=== PATIENT | male | born 1975 | race Asian ===

== ENCOUNTER → 2017-01-16 | Outpatient (CLI) | payer OTHER ==
--- NOTE | 2017-01-16 11:07 | RAD ---
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 There is no radiographic evidence of loosening or infection. No fracture or destructive bony lesion is seen. There is mild spurring along the greater trochanters bilaterally. IMPRESSION: 1. 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 2. No acute abnormality is detected.
== END | disposition home or self-care (01) ==
LOC: RAD 09:44
PROVIDERS: ATTEND Surgery
DX: M25.852 Other specified joint disorders, left hip (principal); M25.851 Other specified joint disorders, right hip; Z96.643 Presence of artificial hip joint, bilateral
CPT/HCPCS: 72170

== ENCOUNTER 2018-02-15 11:31 | Emergency (ER) | payer OTHER ==
[~2018-02-15] VITALS: Ht 170.2 cm; Wt 72.6 kg
[2018-02-15 11:44] VITALS: BP 129/77
[2018-02-15] MEDS ORDERED: LIDOCAINE 1% PF 2 ML VIAL. INJ ONE (12:30)
[2018-02-15] MEDS ORDERED: DIPHTH,PERTUSS(ACELL),TET TOX 0.5 ML DISP.SYRIN. VAX IM ONE (12:30)
[2018-02-15] MEDS ORDERED: cefTRIAXone IM 1 GM VIAL IM ONE (12:30)
--- NOTE | 2018-02-15 13:04 | RAD ---
HAND RIGHT 3V History: LACERATION AT BASE OF THUMB 1 WEEK AGO
NOW HAVING SWELLING AND REDNESS. Comparison: None are available No evidence of acute fracture. No bone destruction. Joint spaces and alignment are intact. No evidence of dislocation. No gross soft tissue abnormality. IMPRESSION: No acute bone abnormality is identified. Electronically signed by: Scott Stern MD (02/15/2018 1:01 PM) [facility]
--- NOTE | 2018-02-15 13:31 | PHYS DOC ---
Past Medical History Past Medical History: No Pertinent History Past Surgical History: Hip Replacement Alcohol Use: None Drug Use: None Adult General Chief Complaint Chief Complaint: HAND PROBLEM HPI HPI Patient is a 42 year old male who presents with right hand infection, patient states he cut himself accidentally on a metal can last Thursday and has noted redness to the hand. Denies any fever or drainage. Patient is right-handed Review of Systems Review of Systems Constitutional: Denies fever or chills [] Musculoskeletal: Denies back pain or joint pain [] Integument:right hand infection. Neurologic: Denies headache, focal weakness or sensory changes [] Endocrine: Denies polyuria or polydipsia [] All other systems were reviewed and found to be within normal limits, except as documented in this note. Current Medications Current Medications Current Medications Medications (Trade) Dose Ordered Sig/Jaydon Start Time Stop Time Status Last Admin Dose Admin Ceftriaxone Sodium (Rocephin Im) 1 gm 1X ONCE 02/15/18 12:30 02/15/18 12:31 DC 02/15/18 12:47 1 GM Diphtheria/ Tetanus/Acell Pertussis (Boostrix) 0.5 ml ONCE ONCE 02/15/18 12:30 11 12:31 DC 02/15/18 12:48 0.5 ML Lidocaine HCl (Xylocaine-Mpf 1% 2ml Vial) 2 ml 1X ONCE 02/15/18 12:30 02/15/18 12:31 DC 02/15/18 12:47 2 ML Allergies Allergies Allergies Coded Allergies Type Severity Reaction Last Updated Verified No Known Drug Allergies 02/15/18 No Physical Exam Physical Exam Constitutional: Well developed, well nourished, no acute distress, non-toxic appearance. [] Abdomen: Bowel sounds normal, soft, no tenderness, no masses, no pulsatile masses. [] Skin: Warm, dry, laceration noted approximately 1 cm on the medial aspect proximal end of the right thumb. There is erythema surrounding this laceration site and around the base of the thumb. Patient able to flex and extend the finger with no difficulty. Adequate radius sensation to the finger. +2 right radial pulse. Cap refill less than 2 seconds. Thumb is warm to touch no fluctuance. Back: No tenderness, no CVA tenderness. [] Extremities: No tenderness, no cyanosis, no clubbing, ROM intact, no edema. [] Neurologic: Alert and oriented X 3, normal motor function, normal sensory function, no focal deficits noted. [] Psychologic: Affect normal, judgement normal, mood normal. [] Current Patient Data Vital Signs Vital Signs Date Time Temp Pulse Resp B/P (MAP) Pulse Ox O2 Delivery O2 Flow Rate FiO2 02/15/18 11:44 98.1 80 18 129/77 (94) 99 Room Air 98.1 EKG EKG [] Radiology/Procedures Radiology/Procedures []PROCEDURE: HAND RIGHT 3V HAND RIGHT 3V History: LACERATION AT BASE OF THUMB 1 WEEK AGO
NOW HAVING SWELLING AND REDNESS. Comparison: None are available No evidence of acute fracture. No bone destruction. Joint spaces and alignment are intact. No evidence of dislocation. No gross soft tissue abnormality. IMPRESSION: No acute bone abnormality is identified. Electronically signed by: Scott Stern MD (02/15/2018 1:01 PM) [facility] DICTATED and SIGNED BY: SCOTT STERN MD DATE: 02/15/18 1259 Course & Med Decision Making Course & Med Decision Making Pertinent Labs and Imaging studies reviewed. (See chart for details) This is a 42-year-old male patient presenting to the ED today with cellulitis of the right hand after laceration almost a week ago. Right hand x-rays are negative for any acute findings. Patient was given Rocephin and tetanus shot in the ED. Discharged with Bactrim. Instructed to keep the affected area clean and dry. Follow-up with his own PCP in 1-2 weeks. Dragon Disclaimer Dragon Disclaimer This electronic medical record was generated, in whole or in part, using a voice recognition dictation system. Departure Departure Impression: Primary Impression: Cellulitis of hand, right Disposition: HOME, SELF-CARE Condition: STABLE Referrals: NO PCP (PCP) Follow-up with your doctor in 1-2 weeks Patient Instructions: Cellulitis, [id number] Additional Instructions: You were seen with infection to the right hand. Keep the area clean and dry. Ensure you complete your antibiotics. Your x-rays were negative for any acute findings. Follow-up with your own doctor in one to 2 weeks. Scripts Sulfamethoxazole/Trimethoprim (BACTRIM DS TABLET) 1 Each Tablet 1 TAB PO BID, #20 TAB Prov: BRANDIE GRIJALVA APRN 02/15/18 BRANDIE GRIJALVA APRN Feb 15, 2018 13:31
[2018-02-15] MEDS ORDERED: SULF1TAB24 PO (13:40)
== END 2018-02-15 13:51 | disposition home or self-care (01) ==
LOC: ER 11:31
DX: L03.113 Cellulitis of right upper limb (principal)
CPT/HCPCS: 73130; 90471; 90715; 96372; 99284; J0696